=== PATIENT | female | born 1980 | race African-American/Black ===

== ENCOUNTER 2021-01-21 07:56 | Day surgery (SDC) | payer OTHER ==
[2021-01-21 08:06] LABS: Specific Gravity 1.015 (1.005-1.030)
[2021-01-21 08:10] LABS: Absolute Lymphocytes (CBC) 1.9 K/uL (0.7-4.9); Basophils % 1.4 % (0-1.3); Hematocrit 34.3 % (36.0-45.0); MPV 8.8 fL (7.6-11.3); RBC Red Blood Cell Count 4.88 M/uL (3.86-4.86)
[2021-01-21] MEDS ORDERED: SCOPOLAMINE HYDROBROMIDE PATCH TD ONE ×2 (08:35→08:55)
[2021-01-21] MEDS ORDERED: Ringers Lactate 1,000 ML IV ONE ×4 (08:44→14:40)
[2021-01-21] MEDS ORDERED: CEFAZOLIN/SWI 1gm 1 GM/10 ML SYR ONE (08:45)
[2021-01-21 08:55] VITALS: O2SAT 100
[2021-01-21] MEDS ORDERED: EPINEPHRINE/PF 1 MG/ML AMP ONE (09:08)
[2021-01-21] MEDS ORDERED: CEFAZOLIN SODIUM 1 GM/VIAL ONE (09:08)
[2021-01-21] MEDS ORDERED: GENTAMICIN SULF 80 MG/2ML INJ ONE (09:08)
[2021-01-21] MEDS ORDERED: NS 0.9% VIAL 40 ML ONE (09:08)
[2021-01-21] MEDS ORDERED: LIDOCAINE 1% W/EPI 1:100,000 MDV 20 ML VIAL ONE (09:09)
[2021-01-21] MEDS ORDERED: NA CHLORIDE 0.9% 3,000 ML ONE (09:09)
[2021-01-21] MEDS ORDERED: BACITRACIN 50000 UNIT VIAL ONE (09:09)
[2021-01-21] MEDS ORDERED: MIDAZOLAM HCL 2 MG/2 ML INJ ONE (09:16)
[2021-01-21] MEDS ORDERED: propofoL 200 MG/20 ML VIAL IV ONE (09:16)
[2021-01-21] MEDS ORDERED: GLYCOPYRROLATE 0.2 MG/ML SYR ONE ×2 (09:17)
[2021-01-21] MEDS ORDERED: LIDOCAINE 2% MPF 5 ML VIAL ONE (09:17)
[2021-01-21] MEDS ORDERED: FENTANYL CITR 250 MCG/5 ML ONE ×2 (09:17→11:13)
[2021-01-21] MEDS ORDERED: ROCURONIUM 50 MG/5 ML VIAL IV ONE ×2 (09:18→11:13)
[2021-01-21] MEDS ORDERED: KETOROLAC 30 MG/ML INJ ONE (09:20)
[2021-01-21] MEDS ORDERED: ONDANSETRON 4 MG/2 ML VIAL ONE ×2 (09:20→15:43)
[2021-01-21] MEDS ORDERED: dexAMETHasone 10 MG/ML VIAL ONE (09:20)
[2021-01-21 11:41] LABS: Anisocytosis 2+; Blood Morphology Comment NOTED (NOT SEEN); Hypochromasia 1+; Platelet Estimate ADEQ; Polychromasia 1+; White Blood Cell Scan OK (OK)
[2021-01-21] MEDS ORDERED: EPHEDRINE SULF 50 MG/ML VIAL ONE (12:07)
[2021-01-21] MEDS ORDERED: Mastisol Adhesive Liq ONE ×2 (14:28→16:27)
[2021-01-21] MEDS: HYDROMORPHONE HCL 1 MG/ML INJ ONE ×2 (16:47→16:56)
[2021-01-21] MEDS: DIPHENHYDRAMINE 50 MG/ML VIAL ONE ×2 (16:48→17:00)
[2021-01-21] MEDS ORDERED: HYDROMORPHONE HCL 1 MG/ML INJ ONE (17:27)
[2021-01-21] MEDS ORDERED: CODEINE 30MG/APAP 300MG TAB PO ONE (18:20)
[2021-01-21] MEDS ORDERED: CODEINE 30MG/APAP 300MG TAB ONE (18:38)
[2021-01-21 18:54] VITALS: BP 112/73; TEMP 97.7
--- NOTE | 2021-01-25 07:45 | OP ---
Surgeon: Johnnie Arce MD Preoperative Diagnoses: breast enlargement and descent, abdominal lipodystrophy. Postoperative Diagnosis: breast enlargement and descent, abdominal lipodystrophy. Procedure Performed: Breast lift reduction, 280 on right and 266 on left and left abdomen and flank 1500 cc removed. Anesthesia: General. Procedure In Detail: After satisfactory induction of general anesthesia, chest was prepped with Dura Prep and dry sterile drapes were applied in the usual manner. A 5 cm template was used to outline th e right and left areolas. Then a transverse and curved incision was made with scalpel. Intervening skin was de-epithelialized with dermabrader or Epicut. Then a scalpel was used to incise the right s vee. The flap was thinned to 1.2 cm thickness. Flap was elevated towards the sternum, clavicle, ant erior axillary line. Then inferior incision was made and then the deepithelialized tissue was formed with cone using 2-0 PDS suture. After this was done, excess breast tissue cephalad and medial later al was excised and then straps were elevated from the deepest portion at the 12 o'clock, 1:30 and 3 o 'clock position. The straps were then woven in and out of the pectoralis muscle back to the base of the cone, pectoralis muscle back to base of the cone, tied themselves with 2-0 PDS sutures. This was done for 12 o'clock, 1:30 strap. The 3 o'clock strap was sewn over the sternum at the 3 o'clock pos ition with 2-0 Ethibond. The wound was kept in sterile shape. The left side was done in a mirror-im age manner. We then returned to the right side. The patient had the dog-ears excised medial and lat eral. Wound was irrigated with antibiotic solution. 10 KIRBY was brought out of the axilla, sewn in pl sloan with 4-0 silk and then the wound was closed in layers with 3-0 Vicryl subcutaneous, then 3-0 PDS running in subcuticular fashion medial to lateral and lateral to medial, tied in vertical meridian of the breast. Left side was done in identical manner. Amount of tissue removed from the right breast was 280, left breast was 266. The patient was sat up. Site for new nipple-areolar complex was landon ed out. The tissue was cored out and then complex delivered sewn with interrupted 4-0 PDS followed b y 4-0 PDS running subcuticular. Then, all the prepped with DuraPrep. Dry sterile drapes were applied in usual manner. Incision was made supraumbilical and in the bilaterally wit h 15 blade. Infusion was performed, right flank left flank 200, right lower 400, left low er 400. Right side with aspirate 350, left 300, in midline 400, right lower 100, left lower 250. Th e wounds were closed with 4-0 PDS. Dressings consisted of abdominal binder and Tincture of benzoin, Steri-Strips followed by Esmarch, fluffs, and Sloan wrap on the breast. The patient tolerated procedur e well and returned to Recovery. MOHAMUD/WILBERTO Voice ID: [id number] Report ID: [id number]
== END 2021-01-21 18:45 | disposition home or self-care (01) ==
LOC: OR 07:56
PROVIDERS: ATTEND Specialist
PROC: 0J083ZZ Alteration of Abdomen Subcutaneous Tissue and Fascia, Percutaneous Approach (ICD-10-PCS; principal; 2021-01-21 09:00)
PROC: 0HSV0ZZ Reposition Bilateral Breast, Open Approach (ICD-10-PCS; 2021-01-21 09:00)
DX: N64.81 Ptosis of breast (principal); E65 Localized adiposity
CPT/HCPCS: 85025; 36415; 81025; 88305; 15877; 19316; J2704; J0171; J1200; J1580; J2250; J3010 ×2; J1100; J1170 ×2; J0690 ×2; J7120 ×4; J7030; J2405 ×2; 88304